=== PATIENT | female | born 1935 | race Caucasian/White ===

== ENCOUNTER → 2017-01-30 | Outpatient (CLI) | payer MEDICARE, OTHER ==
[~2017-01-30] MED LIST: ALBUTEROL MININEB NEB; ALBUTEROL17 GM INH; AMIODARONE PO; AMLODIPINE BESY10 MG PO; ASPIRIN81 M2 PO; AZITHROMYCIN250 MG PO; COUMADIN2.5 MG PO; COUMADIN5 MG PO; COZAAR25 MG PO; DYRENIUM50 MG PO; HUMIBID-LA600 MG PO; IMDUR-ER30 M1 PO; IMDUR-ER30 MG PO; IMDUR-ER60 MG PO; ISOSORBIDE MONO20 M1 PO; K-DUR20 ME1 PO; LIPITOR40 MG PO; LISINOPRIL10 MG PO; LISINOPRIL20 MG PO; LOPRESSOR PO; MAXZIDE 75/50 T1 TA1; MAXZIDE 75/50 T1 TAB PO; MEDROL DOSEPAK4 MG PO; METOPROLOL SUC100 MG PO; METOPROLOL TART25 MG PO; MEVACOR PO; NORVASC PO; NORVASC10 MG PO; PATIENT'S PHARMACY; PEPCID AC20 M2 PO; TRIAMTERENE/HCT1 TA3 PO; VICODIN 5/500 T1 TAB PO; ZESTRIL10 M2 PO; [UNRECOGNIZED DRUG - OTHER]
[2017-01-30 16:24] LABS: THYROID STIMULATING HORMONE 3.11 uIU/ml (0.34-5.60)
[2017-01-30 16:30] LABS: FREE THYROXIN (T4) 1.09 ng/dL (0.58-1.64)
== END | disposition home or self-care (01) ==
LOC: CLAB 14:32
PROVIDERS: Internal Medicine Cardiovascular Disease
DX: R53.83 Other fatigue (principal)
CPT/HCPCS: 36415; 84439; 84443; 84481